=== PATIENT | female | born 1985 | race Caucasian/White ===

== ENCOUNTER 2020-09-19 18:06 | Emergency (ER) | payer SELFPAY ==
[~2020-09-19] VITALS: Ht 170.2 cm; Wt 65.8 kg
[2020-09-19 21:01] VITALS: BP 123/79
--- NOTE | 2020-09-19 21:01 | NUR ---
PT DIANA HENRIQUEZ. TAKEN TO CHAIR D
--- NOTE | 2020-09-19 21:30 | NUR ---
IN CHAIR. DIANA ON 6315. PT IS EXPERIENCING VISUAL AND AUDITORY HALLUCINATIONS AND HAD (+) METH USE THIS AM. PT IS POOR HISTORIAN AND SEQUENCE OF EVENTS IS UNCLEAR. PT SPEAKS OF 11 Y.O. DAUGHTER WHO HAS BEEN TAKEN FROM HER BY CHILD WELFARE. PMH: DENIES ALLERGIES: CODEINE
--- NOTE | 2020-09-19 22:04 | NUR ---
TELEPSYCH INITIATED PER DR. MURRAY
[2020-09-19 22:17] LABS: BASOPHILS % (AUTO) 0.2 % (0.0-2.0); EOSINOPHILS % (AUTO) 0.1 % (0.0-4.0); HEMATOCRIT 37.7 % (36-48); HEMOGLOBIN 12.6 g/dL (12.0-16.0); LYMPHOCYTES # (AUTO) 0.7 K/uL (2.5-16.5); LYMPHOCYTES % (AUTO) 8.7 % (20.5-51.1); MEAN CORPUSCULAR HEMOGLOBIN 33 pg (27-31); MEAN CORPUSCULAR HGB CONC 33 g/dL (33-37); MEAN CORPUSCULAR VOLUME 98.3 fL (80-94); MONOCYTES # (AUTO) 0.9 K/uL (0.8-1.0); MONOCYTES % (AUTO) 11.4 % (1.7-9.3); NEUTROPHILS # (AUTO) 6.2 K/uL (1.8-7.7); NEUTROPHILS % (AUTO) 79.6 % (42.2-75.2); PLATELET COUNT (AUTO) 245 K/uL (140-450); RED BLOOD CELL COUNT(AUTO) 3.84 MIL/uL (4.20-5.40); RED CELL DISTRIBUTION WIDTH 13.2 % (11.6-13.7); WHITE BLOOD COUNT (AUTO) 7.8 K/uL (4.8-10.8)
[2020-09-19 22:20] LABS: APPEARANCE,URINE CLEAR (CLEAR); BILIRUBIN,URINE 1+ (NEGATIVE); BLOOD, URINE 3+ (NEGATIVE); COLOR,URINE YELLOW (YELLOW); LEUKOCYTE ESTERASE ,URINE 1+ (NEGATIVE); NITRITE, URINE NEGATIVE (NEGATIVE); UGLUCOSE NEGATIVE (NEGATIVE)
--- NOTE | 2020-09-19 22:25 | NUR ---
PO TEMP = 103, TYLENOL GIVEN ORDERED
[2020-09-19 22:32] LABS: RBC,URINE 0-5 /HPF (0-5)
[2020-09-19 22:33] LABS: WBC,URINE 20-60 /HPF (0-5)
[2020-09-19 22:34] LABS: URINE AMORPHOUS URATE 1+ /HPF (None Seen)
[2020-09-19 22:35] LABS: ALBUMIN 3.9 g/dL (3.4-5.0); ANION GAP 14.1 (8-16); ASPARTATE AMINOTRANSFERASE 80 U/L (15-37); CARBON DIOXIDE 24.1 mmol/L (21-32); CHLORIDE 94 mmol/L (98-107); CREATININE 0.7 mg/dL (0.6-1.3); GFR ARICAN-AMERICAN 123 mL/min (>90); GLUCOSE 119 mg/dL (74-106); POTASSIUM 3.2 mmol/L (3.5-5.1); SALICYLATE 3.2 mg/dL (2.8-20.0); SODIUM SERUM 129 mmol/L (136-145); TOTAL BILIRUBIN 0.9 mg/dL (0.0-1.0); UREA NITROGEN, BLOOD 12 mg/dL (7-18)
--- NOTE | 2020-09-19 22:38 | NUR ---
ekg performed in wheelchair. ekg reads sinus tachycardia @ 121
[2020-09-19] MEDS ORDERED: cephALEXin 500 MG CAP PO ONE (22:40)
[2020-09-19] MEDS ORDERED: ACETAMINOPHEN 325 MG TAB PO ONE (22:40)
--- NOTE | 2020-09-19 22:40 | NUR ---
COVID/ REGLA SWAB OBTAINED AND SENT TO LAB
[2020-09-19 22:41] LABS: ACETAMINOPHEN < 0.5 ug/ml (10-30)
[2020-09-19] MEDS ORDERED: cephALEXin 500 MG CAP ONE (22:53)
[2020-09-19] MEDS ORDERED: ACETAMINOPHEN 325 MG TAB ONE (22:53)
--- NOTE | 2020-09-19 23:10 | NUR ---
[facility] DOCTOR SPEAKING WITH PT
[2020-09-20 00:22] LABS: BARBITURATE, URINE NEGATIVE ng/ml (NEG <=200); BENZODIAZEPINE, URINE NEGATIVE ng/mL (NEG <=200); CANNABINOID, URINE NEGATIVE ng/mL (NEG <=50); COCAINE, URINE NEGATIVE ng/mL (NEG <=300); OPIATE, URINE NEGATIVE ng/mL (NEG <=2000); PHENCYCLIDINE SCREEN,URINE NEGATIVE ng/mL (NEG <=25)
--- NOTE | 2020-09-20 01:00 | NUR ---
REMAINS IN W/C, RESTING WITH EYES CLOSED. RESPIRATIONS REGULAR AND UNLABORED.
[2020-09-20] MEDS ORDERED: POTASSIUM CHLORIDE 10 MEQ TABER PO ONE ×2 (01:35→04:11)
--- NOTE | 2020-09-20 05:00 | NUR ---
HAS BEEN DOZING OFF AND ON. REQUESTS TO SLEEP ON THE FLOOR. PT REASSURED SHE WILL BE PLACED IN [facility] WHEN AVAILABLE
--- NOTE | 2020-09-20 07:10 | NUR ---
RECEIVED REPORT FROM FROILAN TOSCANO. Patient appears to be resting in CHAIR. Vital Signs within normal limits. Respirations even and unlabored.
--- NOTE | 2020-09-20 07:12 | NUR ---
Rosalind brown in [facility] - 09/20/20 at 1035 by [email or web address] RECEIVED REPORT FROM FROILAN NIEVES
--- NOTE | 2020-09-20 07:15 | NUR ---
Rosalind brown in [facility] - 09/20/20 at 0758 by MELO REGLA RAYMOND SWAB OBTAINED AND SENT TO LAB
--- NOTE | 2020-09-20 07:58 | NUR ---
SWABS OBTAINED AND SENT TO LAB ORDERED
--- NOTE | 2020-09-20 08:52 | NUR ---
[facility] has received packet. Aware patient is pending Covid PCR test results.
--- NOTE | 2020-09-20 08:53 | NUR ---
ER contacted to try and apply for presumptive Medi-Angel Luis.
--- NOTE | 2020-09-20 08:56 | NUR ---
SPOKE WITH [facility] -- THEY WILL BEGIN TO LOOK FOR PLACEMENT. ADVISED ADMITTING TO ATTEMPT TO GET PRESUMPTIVE MEDI-PEGGY FOR PATIENT.
[2020-09-20] MEDS ORDERED: cephALEXin 500 MG CAP PO SCH (09:00)
--- NOTE | 2020-09-20 10:35 | NUR ---
Rosalind brown in ED - 09/20/20 at 1035 by [email or web address] Patient appears to be resting comfortably in bed. Vital Signs within normal limits. Respirations even and unlabored.
--- NOTE | 2020-09-20 10:36 | NUR ---
Patient appears to be resting in CHAIR Vital Signs within normal limits. Respirations even and unlabored.
--- NOTE | 2020-09-20 13:18 | NUR ---
FLU SWAB COLLECTED.
--- NOTE | 2020-09-20 16:00 | NUR ---
Dr. Lee removed patient from [facility] and [place] pt to be discharged home.
--- NOTE | 2020-09-20 16:29 | NUR ---
CALLED PATIENT'S FAMILY, SPOKE TO MOTHER TO PICK PATIENT UP. DAUGHTER SPEAKING TO MOTHER TO SEE IF SHE WILL COME PICK HER UP.
--- NOTE | 2020-09-20 16:39 | NUR ---
Patient discharged with v/s stable. Written and verbal after care instructions given and explained. Patient verbalized understanding. Ambulatory with steady gait. Taxi was arranged for patient on voucher to take her to her grandmother's home. All questions addressed prior to discharge. Advised to follow up with PMD.
[2020-09-20 16:40] VITALS: BP 110/80
--- NOTE | 2020-09-22 14:08 | NUR ---
negative covid result received from lab. Copy given to infection control
== END 2020-09-20 16:39 | disposition home or self-care (01) ==
LOC: MED 18:06
DX: S83.91XA Sprain of unspecified site of right knee, initial encounter (principal); F29 Unspecified psychosis not due to a substance or known physiological condition; F15.90 Other stimulant use, unspecified, uncomplicated; N39.0 Urinary tract infection, site not specified; E87.6 Hypokalemia; R74.01 Elevation of levels of liver transaminase levels; Z20.828 Contact with and (suspected) exposure to other viral communicable diseases; Z02.89 Encounter for other administrative examinations; Z88.5 Allergy status to narcotic agent; X58.XXXA Exposure to other specified factors, initial encounter; Y93.39 Activity, other involving climbing, rappelling and jumping off; Y92.89 Other specified places as the place of occurrence of the external cause; Y99.8 Other external cause status
CPT/HCPCS: 36415; 73562; 73590; 80053; 80305; 81001; 81025; 85025; 87086; 87426; 87804; 93005; 99285; G0480; G0482; U0003